=== PATIENT | female | born 1995 | race Two or more races ===

== ENCOUNTER 2023-03-03 04:09 | Inpatient (IN) | payer MEDICAID ==
[2023-03-02 09:40] LABS: Urine Bacteria FEW /hpf (None Seen); Urine Blood Negative /uL (Negative); Urine WBC 1 /hpf (0 - 5)
[2023-03-02 09:45] LABS: Basophils # (auto) 0.1 10 ^3/uL (0-0.2); Basophils % (auto) 0.7 % (0.0-2.0); Eosinophils # (auto) 0.1 10 ^3/uL (0-0.8); Eosinophils % (auto) 0.6 % (0.0-7.0); Hematocrit 37.7 % (36.0-46.0); Hemoglobin 12.5 g/dL (12.2-16.2); Lymphocytes # (auto) 2.1 10 ^3/uL (0.4-5.4); Lymphocytes % (auto) 24.8 % (10.0-50.0); Mean Corpuscular Hemoglobin 28.2 pg (28.0-32.0); Mean Corpuscular Hgb Conc. 33.2 g/dL (32.0-36.0); Mean Corpuscular Volume 84.8 fL (80.0-100.0); Monocytes # (auto) 0.7 10 ^3/uL (0-1.3); Neutrophils # (auto) 5.6 10 ^3/uL (1.6-8.6); Neutrophils % (auto) 65.9 % (37.0-80.0); Nucleated Red Blood Cells % 0.1 %; Red Blood Cells 4.44 10^6/uL (4.0-5.20); Red Cell Distribution Width 14.8 % (11.8-14.3); White Blood Cell 8.6 10^3/uL (4.4-10.8)
[2023-03-02 09:54] LABS: INR 0.89 (0.9-1.15); Partial Thromboplastin Time 25.9 SEC (24.5-34.5)
[2023-03-02 10:00] LABS: Albumin 2.7 g/dL (3.4-5.0); Alcohol, Urine < 3.0 mg/dL (0-10); Amphetamine Screen, Urine NEGATIVE (NEGATIVE); Barbiturate Scree,Urine NEGATIVE (NEGATIVE); Benzodiazephine Screen, Urine NEGATIVE (NEGATIVE); Calcium 8.7 mg/dL (8.5-10.1); Cannabinoid Screen, Urine NEGATIVE (NEGATIVE); Cocaine Screen, Urine NEGATIVE (NEGATIVE); Opiate Scree,Urine NEGATIVE (NEGATIVE); Phencyclidine Screen, Urine NEGATIVE (NEGATIVE)
[2023-03-02 10:03] LABS: BUN/Creatinine Ratio 12.5 (10.0-20.0); Bilirubin, Total 0.3 mg/dL (0.2-1.0); Total Protein 7.6 g/dL (6.4-8.2)
[~2023-03-03] VITALS: Ht 149.9 cm; Wt 79.8 kg
[2023-03-03] VITALS (20 sets, daily range): BP systolic 87–124; BP diastolic 43–75
[2023-03-03] MEDS ORDERED: SODIUM CITR/CITRIC ACID ORAL SOLN 30 ML PO ONE (04:30)
[2023-03-03] MEDS ORDERED: LACTATED RINGER'S 1,000 ML IV ONE (04:30)
[2023-03-03] MEDS ORDERED: METOCLOPRAMIDE HCL 5MG/ml INJ 2ml VIAL IV ONE (04:30)
[2023-03-03 07:07] LABS: RPR Non Reactive (Non Reactive)
[2023-03-03] MEDS ORDERED: ceFAZolin 1GM/50ML 50 ML IV ONE (07:30)
[2023-03-03] MEDS ORDERED: DOCU-94 PO (07:37)
[2023-03-03] MEDS ORDERED: HYDR-4902 PO (07:37)
[2023-03-03] MEDS ORDERED: MIDAZOLAM HCL 2MG/2ML 2ml VIAL (1mg/ml) ONE (07:42)
[2023-03-03] MEDS ORDERED: fentaNYL CITRATE 100 MCG/2 ML VL ONE (07:42)
[2023-03-03] MEDS ORDERED: MORPHINE SULF PF 5 MG/10 ML VIAL ONE (07:42)
[2023-03-03] MEDS ORDERED: LACT. RINGERS/OXYTOCIN 20UNITS 1,000 ML IV ONE (07:45)
[2023-03-03] MEDS ORDERED: GUM (CHEWING) 1 GUM CHEW CHEW ONE (07:45)
[2023-03-03] MEDS ORDERED: ceFAZolin 1GM/50ML 50 ML IV SCH (07:45)
[2023-03-03] MEDS ORDERED: ONDANSETRON HCL 4 MG/2 ML VIAL IV PRN ×3 (07:45→09:00)
[2023-03-03] MEDS ORDERED: oxyTOCIN 10 UNIT/ML 10ML VIAL ONE (08:00)
[2023-03-03] MEDS ORDERED: ePHEDrine SULFATE 50 MG/ML AMP IV PRN (09:00)
[2023-03-03] MEDS ORDERED: DexAMETHasone SOD PHOS 10MG/1ML VIAL INJ IV PRN (09:00)
[2023-03-03] MEDS ORDERED: NALOXONE HCL 0.4 MG/ML VIAL IV PRN (09:00)
[2023-03-03] MEDS ORDERED: LABETALOL HCL 5 MG/ML 4ML SYRINGE IV PRN (09:00)
[2023-03-03] MEDS ORDERED: diphenhdrAMINE HCL 50 MG/1 ML VL IV PRN (09:00)
[2023-03-03] MEDS ORDERED: MIDAZOLAM HCL 2MG/2ML 2ml VIAL (1mg/ml) IV PRN (09:00)
[2023-03-03] MEDS ORDERED: HYDROmorphone HCL 2 MG/ML VL/or syr IV PRN (09:00)
[2023-03-03] MEDS ORDERED: OXYTOCIN 10UNIT/ML 1ML VIAL ONE (09:04)
[2023-03-03] MEDS: ACETAMINOPHEN IV 1000 MG/100ML (10MG/ML) IV SCH ×2 (15:18→23:57)
[2023-03-03] MEDS: ceFAZolin 1GM/50ML 50 ML IV SCH ×2 (15:18→23:14)
[2023-03-03] MEDS: LACTATED RINGER'S 1,000 ML IV SCH (20:30)
[2023-03-03 22:01] LABS: Basophils # (auto) 0 10 ^3/uL (0-0.2); Basophils % (auto) 0.4 % (0.0-2.0); Eosinophils # (auto) 0 10 ^3/uL (0-0.8); Eosinophils % (auto) 0.2 % (0.0-7.0); Hematocrit 34.4 % (36.0-46.0); Hemoglobin 11.4 g/dL (12.2-16.2); Lymphocytes # (auto) 1.1 10 ^3/uL (0.4-5.4); Lymphocytes % (auto) 11.2 % (10.0-50.0); Mean Corpuscular Hgb Conc. 33.1 g/dL (32.0-36.0); Mean Corpuscular Volume 84.6 fL (80.0-100.0); Monocytes # (auto) 0.5 10 ^3/uL (0-1.3); Monocytes % (auto) 5.4 % (0.0-12.0); Neutrophils # (auto) 8.4 10 ^3/uL (1.6-8.6); Neutrophils % (auto) 82.8 % (37.0-80.0); Nucleated Red Blood Cells % 0.1 %; Red Blood Cells 4.07 10^6/uL (4.0-5.20); Red Cell Distribution Width 14.2 % (11.8-14.3); White Blood Cell 10.1 10^3/uL (4.4-10.8)
[2023-03-04] VITALS (13 sets, daily range): BP systolic 98–125; BP diastolic 48–81
[2023-03-04] MEDS: LACTATED RINGER'S 1,000 ML IV SCH (04:56)
[2023-03-04 06:48] LABS: Basophils # (auto) 0 10 ^3/uL (0-0.2); Basophils % (auto) 0.4 % (0.0-2.0); Eosinophils # (auto) 0 10 ^3/uL (0-0.8); Eosinophils % (auto) 0.3 % (0.0-7.0); Hematocrit 33.7 % (36.0-46.0); Hemoglobin 11.3 g/dL (12.2-16.2); Lymphocytes # (auto) 1.3 10 ^3/uL (0.4-5.4); Mean Corpuscular Hemoglobin 28.3 pg (28.0-32.0); Mean Corpuscular Hgb Conc. 33.4 g/dL (32.0-36.0); Mean Corpuscular Volume 84.8 fL (80.0-100.0); Monocytes # (auto) 0.5 10 ^3/uL (0-1.3); Monocytes % (auto) 5.3 % (0.0-12.0); Neutrophils # (auto) 6.9 10 ^3/uL (1.6-8.6); Nucleated Red Blood Cells % 0.1 %; Red Blood Cells 3.98 10^6/uL (4.0-5.20); Red Cell Distribution Width 14.7 % (11.8-14.3); White Blood Cell 8.7 10^3/uL (4.4-10.8)
[2023-03-04] MEDS: ceFAZolin 1GM/50ML 50 ML IV SCH (07:57)
[2023-03-04] MEDS: ACETAMINOPHEN IV 1000 MG/100ML (10MG/ML) IV SCH (07:58)
[2023-03-04] MEDS ORDERED: D5W/LACTATED RINGERS 1,000 ML IV SCH (10:00)
[2023-03-04] MEDS ORDERED: SODIUM CHLORIDE 0.9% 1,000 ML IV SCH (10:00)
[2023-03-04] MEDS ORDERED: BISACODYL 10 MG RECT SUPP PR PRN (10:00)
[2023-03-04] MEDS ORDERED: LACTATED RINGER'S 1,000 ML IV SCH (10:00)
[2023-03-04] MEDS ORDERED: HYDROcodone-ACET 5/325MG TAB PO PRN (10:00)
[2023-03-04] MEDS: DOCUSATE SOD 100 MG CAP PO SCH ×2 (10:33→23:05)
[2023-03-04] MEDS: DOCUSATE CALCIUM 240 MG CAP PO SCH (10:33)
[2023-03-04] MEDS: SIMETHICONE 80 MG CHEWABLE TABLET PO SCH ×3 (12:10→23:05)
[2023-03-04] MEDS: IBUPROFEN 800 MG TAB PO PRN ×2 (13:44→23:05)
[2023-03-04] MEDS: HYDROcodone-ACET 5/325MG TAB PO PRN (17:43)
[2023-03-05 03:14] VITALS: BP 94/61
[2023-03-05] MEDS: SIMETHICONE 80 MG CHEWABLE TABLET PO SCH ×4 (06:30→23:10)
[2023-03-05 06:50] VITALS: BP 111/66
[2023-03-05] MEDS: HYDROcodone-ACET 5/325MG TAB PO PRN (06:56)
[2023-03-05] MEDS ORDERED: PREN-96 PO ×3 (07:18→07:45)
[2023-03-05] MEDS ORDERED: IBUP-1455 PO ×3 (07:18→07:45)
[2023-03-05] MEDS: IBUPROFEN 800 MG TAB PO PRN ×2 (08:51→16:55)
[2023-03-05] MEDS: DOCUSATE CALCIUM 240 MG CAP PO SCH (09:51)
[2023-03-05] MEDS: DOCUSATE SOD 100 MG CAP PO SCH ×2 (09:51→23:10)
[2023-03-05 11:15] VITALS: BP 112/66
[2023-03-05 15:02] VITALS: BP 104/73
[2023-03-05 19:00] VITALS: BP 103/62
[2023-03-05 23:00] VITALS: BP 106/68
[2023-03-06 07:15] VITALS: BP 99/58
[2023-03-06 11:15] VITALS: BP 104/68
== END 2023-03-06 12:55 | disposition home or self-care (01) | DRG 540 ==
LOC: LDRP 04:09
PROVIDERS: ADMIT Obstetrics & Gynecology; ATTEND Obstetrics & Gynecology
PROC: 10D00Z1 Extraction of Products of Conception, Low, Open Approach (ICD-10-PCS; principal; 2023-03-03 07:32)
DX: O34.211 Maternal care for low transverse scar from previous cesarean delivery (principal); Z37.0 Single live birth; Z3A.38 38 weeks gestation of pregnancy
CPT/HCPCS: 36415; 59025; 80053; 80307; 81001; 81002; 85025; 85610; 85730; 86592; 86850; 86900; 86901; 94760; 94762; 96360; 96361; 96365; 96366; G0378; J0131; J0690; J2250; J2590

== ENCOUNTER 2025-05-15 10:09 | Emergency (ER) | payer SELFPAY, MEDICAID ==
[~2025-05-15 10:09] MED LIST: DOCU-94 PO; HYDR-4902 PO; IBUP-1455 PO; PREN-96 PO
[2025-05-15 10:10] VITALS: BP 110/67; PULSE 70; TEMP 97.9; O2SAT 96
--- NOTE | 2025-05-15 10:53 | ED.PDOC ---
[facility] HPI Comments A 29 YEAR OLD FEMALE PRESENTS TO THE ED WITH COMPLAINT OF VAGINAL SPOTTING DURING . PATIENT STATES SHE IS CURRENTLY ABOUT 11 WEEKS AND BEGAN TO EXPERIENCE VAGINAL SPOTTING TODAY, PROMPTING HER TO COME ED FOR EVALUATION. PATIENT DENIES DYSURIA, HEMATURIA, FLANK PAIN, VAGINAL DISCHARGE, FEVER, CHILLS, SHORTNESS OF BREATH, CHEST PAIN, ABDOMINAL PAIN, NAUSEA, VOMITING, HEADACHE, OR OTHER COMPLAINTS. NO OTHER SYMPTOMS OR MODIFYING FACTORS AT THIS TIME. PATIENT IS ALERT, ORIENTED X 4, AND HAS STEADY GAIT. Chief Complaint: Vaginal Bleed Time Seen by MD: 10:23 Reviewed Notes: Nurses Notes, Medications, Allergies Allergies: Coded Allergies: NO KNOWN ALLERGIES (Unverified , 03/03/23) Home Meds Active Scripts Vit W/ Ferrous Fumara ( One Daily) Daily Tab, 1 TAB PO DAILY, #90 TAB 3 Refills Prov:CATARINA BROWN [facility] 03/05/23 Ibuprofen Micronized (Ibuprofen) 800 Mg Tab, 800 MG PO Q8HP PRN for 30 Days, #90 TAB Prov:CATARINA BROWN [facility] 03/05/23 Hydrocodone-Acetaminophen (Hydrocodone Bitartrate/AC 5-325 mg) 1 Tab Tab, 1 TAB PO Q6HPRN PRN for 5 Days, #20 TAB Prov:JULIO HERMAN 03/03/23 Docusate Sodium (Colace) 100 Mg Cap, 1 CAP PO BID, #60 CAP 2 Refills Prov:JULIO HERMAN 03/03/23 Information Source: Patient Mode of Arrival: Ambulatory Timing: Days Prehospital treatment: None Severity: Mild Vaginal Lesions: None Bleeding Quality: Bright Red Vaginal Mass: None Onset Of Mass/Bleeding: Spontaneous Sexual Activity: Last Consensual [place]: Unknown Control: None History of: Current Blood Type: Unknown Symptoms of Possible : None Associated Signs and Symptoms: Vaginal Bleeding, Cramping Past Medical History PAST MEDICAL HISTORY: Denies Surgical History: Denies all surgeries JOB ESTIMATOR History: No Pertinent JOB ESTIMATOR History Family History Family History: Reviewed,noncontributory to illness Social History Smoker: Non-Smoker Alcohol: Denies ETOH Use Drugs: Denies Drug Use Lives In: Home Constitutional: denies: chills, diaphoresis, fatigue, fever, malaise, sweats, weakness, others EENTM: denies: blurred vision, double vision, ear bleeding, ear discharge, ear drainage, ear pain, ear ringing, eye pain, eye redness, hearing loss, mouth pain, mouth swelling, nasal discharge, nose bleeding, nose congestion, nose pain, photophobia, tearing, throat pain, throat swelling, voice changes, others Respiratory: denies: cough, hemoptysis, orthopnea, SOB at rest, shortness of breath, SOB with excertion, stridor, wheezing, others Cardiovascular: denies: chest pain, dizzy spells, diaphoresis, Dyspnea on exertion, edema, irregular heart beat, left arm pain, lightheadedness, palpitations, PND, syncope, others Gastrointestinal: denies: abdomen distended, abdominal pain, blood streaked bowels, constipated, diarrhea, dysphagia, difficulty swallowing, hematemesis, melena, nausea, poor appetite, poor fluid intake, rectal bleeding, rectal pain, vomiting, others Genitourinary: reports: abnormal vagina bleeding (VAGINAL SPOTTING), ; denies: burning, dyspareunia, dysuria, flank pain, frequency, hematuria, incontinence, pain, vagina discharge, urgency, others Neurological: denies: dizziness, fainting, headache, left sided numbness, left sided weakness, numbness, paresthesia, pre-existing deficit, right sided numbness, right sided weakness, seizure, speech problems, tingling, tremors, weakness, others Musculoskeletal: denies: back pain, gout, joint pain, joint swelling, muscle pain, muscle stiffness, neck pain, others Integumetry: denies: bruises, change in color, change in hair/nails, dryness, laceration, lesions, lumps, rash, wounds, others Allergic/Immunocompromised: denies: Difficulty Healing, Frequent Infections, Hives, Itching, others Hematologic/Lymphatic: denies: anemia, blood clots, easy bleeding, easy bruising, swollen glands, others Endocrine: denies: excessive hunger, excessive sweating, excessive thirst, excessive urination, flushing, intolerance to cold, intolerance to heat, unexplained weight gain, unexplained weight loss, others Psychiatric: denies: anxiety, bipolar disorder, depression, hopeless, panic dis order, schizophrenia, sleepless, suicidal, others All Other Systems: Reviewed and Negative Physical Exam General Appearance: No Apparent Distress, Normal HEENT: Normal ENT Inspection, PERRL/EOMI, Pharynx Normal, TMs Normal Neck: Full Range of Motion, Non-Tender, Normal, Normal Inspection Respiratory: Chest Non-Tender, Lungs Clear, No Accessory Muscle Use, No Respiratory Distress, Normal Breath Sounds Cardiovascular: No Edema, No JVD, No Murmur, No Gallop, Normal Peripheral Pulses, Regular Rate/Rhythm Breast Exam: Deferred Gastrointestinal: No Organomegaly, Non Tender, No Pulsatile Mass, Normal Bowel Sounds, Soft Genitalia: Deferred Pelvic: Normal External Exam, Other (VAGINAL SPOTTING, NO VAGINAL BLEEDING AND BLOOD CLOTS. ) Rectal: Deferred Extremities: No calf tenderness, Normal capillary refill, Normal inspection, Normal range of motion, Non-tender, No pedal edema Musculoskeletal : Apperance: Normal Neurologic: Alert, site planner II-XII nml as Tested, No Motor Deficits, Normal Affect, Normal Mood, No Sensory Deficits Cerebellar Function: Normal Reflexes: Normal Skin: Dry, Normal Color, Warm Peripheral Pulses: 2+ carotid (R), 2+ carotid (L) Lymphatic: No Adenopathy Was a procedure done? Was a procedure done?: No Differential Diagnosis (JOB ESTIMATOR) Vaginal Bleeding: - Incomplete, - Threatened, Ectopic , Menstrual Bleeding, UTI, Vaginitis Mass / Lesion: N/A Vaginal Discharge: N/A X-Ray, Labs, Meds, VS Vital Signs Date Time Temp Pulse Resp B/P (MAP) Pulse Ox O2 Delivery O2 Flow Rate FiO2 05/15/25 10:10 97.9 70 110/67 96 97.9 Lab Test 05/15/25 11:53 05/15/25 10:49 Range/Units White Blood Count 8.0 4.4-10.8 10^3/uL Red Blood Count 4.79 4.0-5.20 10^6/uL Hemoglobin 13.5 12.2-16.2 g/dL Hematocrit 40.4 36.0-46.0 % Mean Corpuscular Volume 84.5 80.0-100.0 fL Mean Corpuscular Hemoglobin 28.1 28.0-32.0 pg Mean Corpuscular Hemoglobin Concent 33.3 32.0-36.0 g/dL Red Cell Distribution Width 13.9 11.8-14.3 % Platelet Count 372 140-450 10^3/uL Mean Platelet Volume 7.4 6.9-10.8 fL Neutrophils (%) (Auto) 60.0 37.0-80.0 % Lymphocytes (%) (Auto) 26.6 10.0-50.0 % Monocytes (%) (Auto) 6.1 0.0-12.0 % Eosinophils (%) (Auto) 6.2 0.0-7.0 % Basophils (%) (Auto) 1.1 0.0-2.0 % Neutrophils # (Auto) 4.8 1.6-8.6 10 ^3/uL Lymphocytes # (Auto) 2.1 0.4-5.4 10 ^3/uL Monocytes # (Auto) 0.5 0-1.3 10 ^3/uL Eosinophils # (Auto) 0.5 0-0.8 10 ^3/uL Basophils # (Auto) 0.1 0-0.2 10 ^3/uL Nucleated Red Blood Cells 0.1 % Beta HCG, Quantitative 4785.7 H 1.5-4.2 mIU/mL Urine Color Yellow Yellow Urine Clarity Clear Clear Urine pH 6.0 5.0-9.0 Urine Specific [place] 1.025 1.001-1.035 Urine Protein Negative Negative Urine Ketones Negative Negative Urine Blood Negative Negative /uL Urine Nitrite Negative Negative Urine Bilirubin Negative Negative Urine Urobilinogen Normal Negative mg/dL Urine Leukocyte Esterase Negative Negative /uL Urine RBC 2 0 - 4 /hpf Urine Microscopic WBC 1 0-5 /HPF Urine Squamous Epithelial Cells Few <5 /hpf Urine Bacteria None seen None Seen /hpf Urine Mucus Few None Seen Urine Glucose Normal Normal mg/dL OB ULTRASOUND <14 WEEKS: HISTORY: VAGINAL SPOTTING, 10 WEEKS TECHNIQUE: Multiple real-time grayscale sonographic images of the pelvis with duplex Doppler color flow, spectral and M-mode analysis. TRANSDUCERS: Transabdominal and transvaginal FINDINGS: The uterus measures 8.2 x 6.3 x 5.2 cm. The cervix not well visualized. Right ovary measures 2.9 x 2.0 x 2.9 cm with normal Doppler color flow. There is a corpus luteal cysts in the right ovary measuring 2.2 cm. Left ovary is not well visualized due to obscuration from bowel gas IUP single gestational sac at 7 weeks 6 days average ultrasound age based on gestational sac size of 3.0 cm No heart rate is detected at this time. There is suggestion of the subchorionic hematoma measuring 1.5 cm. IMPRESSION: IUP single gestational sac 7 weeks 6 AUA corresponding to an DAMIEN of 12/27/2019. No heart rate is detected at this time. Correlate with beta HCG and short-term follow-up pelvic ultrasound. There is suggestion of the subchorionic hematoma measuring 1.5 cm. ATED BY: JACQUELINE SCHAEFER MD DICTATED DATE/TIME: 05/15/25 115 SIGNED BY: JACQUELINE SCHAEFER MD SIGNED DATE/TIME: 05/15/25 115 CC: X-Ray, Labs, Meds, VS Comment EXTERNAL MEDICAL RECORDS REVIEWED: [NONE] INDEPENDENT HISTORIANS: [NONE] SOCIAL DETERMINANTS OF HEALTH: [NONE] LABS ORDERED: CBC, UA, BETA HCG QUANT, ABO TYPE REVIEWED AND INTERPRETED RESULTS: BETA HCG QUANT 4,785.7 IMAGING ORDERED: US OB < 14 WKS TREATMENTS ORDERED: NONE PROCEDURES PERFORMED: NONE CRITICAL CARE TIME: NONE I HAVE DISCUSSED THE PATIENT WITH THE ATTENDING PHYSICIAN DR. DURAN AND HE AGREES WITH THE PATIENT'S PLAN OF CARE AND DISPOSITION. BASED ON HISTORY OF PRESENT ILLNESS, AND PHYSICAL EXAM, PATIENT WILL BE DISCHARGED HOME. SHARED DECISION MAKING: PATIENT INSTRUCTED TO FOLLOW UP WITH PRIMARY CARE PROVIDER IN 1-2 DAYS FOR RE-EVALUATION OF SYMPTOMS. PATIENT VERBALIZES UNDERSTANDING TO RETURN TO ED FOR NEW OR WORSENING SYMPTOMS OR IF FOLLOW UP WITH PCP CANNOT BE OBTAINED. PATIENT FEELS COMFORTABLE GOING HOME AT THIS TIME. ALL QUESTIONS ADDRESSED AT TIME OF DISCHARGE. Images Reviewed?: Images reviewed and evaluated by me Time of 1ST Reevaluation: 13:04 Reevaluation 1ST: Improved Patient Education/Counseling: Diagnosis, Treatment, Need For Follow Up Family Education/Counseling: Diagnosis, Treatment, Need For Follow Up Medical Screening: No EMC Exist At This Time Departure 1 Departure Time of Disposition: 13:05 Impression: Primary Impression: Vaginal spotting Additional Impression: Threatened in first trimester Disposition: 01 HOME / SELF CARE / HOMELESS Condition: Stable Additional Instructions: FOLLOW-UP WITH [facility]ENER IN 1 TO 2 DAYS. TAKE MEDICATIONS PRESCRIBED. RETURN TO ED FOR ANY NEW OR WORSENING SYMPTOMS. Discharged With: Self, Spouse Critical Care Note Critical Care Time?: No Stability Stability form required: No I personally scribed for JONO RODRIGUEZ ([email or web address]) on 05/15/25 at 10:53. Electronically submitted by Fabio Morrell ([email or web address]). I personally scribed for JONO RODRIGUEZ ([email or web address]) on 05/15/25 at 12:00. Electronically submitted by Fabio Morrell ([email or web address]). I personally scribed for JONO RODRIGUEZ ([email or web address]) on 05/15/25 at 12:58. Electronically submitted by Fabio Morrell ([email or web address]). JONO RODRIGUEZ May 15, 2025 10:53
[2025-05-15 11:26] LABS: Urine Protein, UAD Negative (Negative)
--- NOTE | 2025-05-15 11:54 | DVH ---
OB ULTRASOUND <14 WEEKS: HISTORY: VAGINAL SPOTTING, 10 WEEKS TECHNIQUE: Multiple real-time grayscale sonographic images of the pelvis with duplex Doppler color f low, spectral and M-mode analysis. TRANSDUCERS: Transabdominal and transvaginal FINDINGS: The uterus measures 8.2 x 6.3 x 5.2 cm. The cervix not well visualized. Right ovary measures 2.9 x 2.0 x 2.9 cm with normal Doppler color flow. There is a corpus luteal cys ts in the right ovary measuring 2.2 cm. Left ovary is not well visualized due to obscuration from bowel gas IUP single gestational sac at 7 weeks 6 days average ultrasound age based on gestational sac size of 3.0 cm No heart rate is detected at this time. There is suggestion of the subchorionic hematoma measur ing 1.5 cm. IMPRESSION: IUP single gestational sac 7 weeks 6 AUA corresponding to an DAMIEN of 12/27/2019. No heart rate is detected at this time. Correlate with beta HCG and short-term follow-up pelvi c ultrasound. There is suggestion of the subchorionic hematoma measuring 1.5 cm.
[2025-05-15 12:21] LABS: Hematocrit 40.4 % (36.0-46.0); Hemoglobin 13.5 g/dL (12.2-16.2); Mean Corpuscular Hemoglobin 28.1 pg (28.0-32.0); Mean Corpuscular Volume 84.5 fL (80.0-100.0); Nucleated Red Blood Cells % 0.1 %
== END 2025-05-15 12:51 | disposition home or self-care (01) ==
LOC: ER 10:09
DX: O20.0 Threatened abortion (principal); Z3A.11 11 weeks gestation of pregnancy
CPT/HCPCS: 36415; 76801; 76817; 81001; 84702; 85025

== ENCOUNTER 2025-05-20 15:34 | Emergency (ER) | payer SELFPAY, MEDICAID ==
[~2025-05-20] VITALS: Ht 154.9 cm; Wt 84.2 kg
--- NOTE | 2025-05-20 15:59 | ED.PDOC ---
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 Patient states she is about 7 weeks , P:2 A:1, has appointment with OBGYN tomorrow. She began experiencing suprapubic pain, went to the restroom, noticed heavy bleeding with blood clots, has had several episodes. Denies fever, chills, dysuria, vaginal discharge, nausea, vomiting, diarrhea, dizziness, headache, blurred vision. No other symptoms or modifying factors present at this time. Initial Vitals BP: 129/81 HR: 107 RR: 18 O2: 98% Temp: 97.5 F Past Medical History: P:2 A:1 Past Surgical History: Denies Social History: Denies ETOH, smoking, and drug use. Medications: Denies Allergies: NKDA HPI: Poor Historian. REVIEW OF SYSTEMS: CONSTITUTIONAL: Denies acute: fever, diaphoresis, chills, generalized weakness. HEAD: Denies acute: headache, photophobia Eyes: Denies acute: Double vision, vision loss, eye pain, eye discharge. EARS: Denies acute: tinnitus, hearing loss, ear discharge, ear pain, THROAT: Denies acute: sore throat, swelling, difficulty swallowing , pain with swallowing, change in voice. NECK: Denies acute: neck pain, neck swelling, stiff neck. HEART: Denies acute : chest pain, palpitations, LUNGS: Denies acute: SOB, wheezing, cough, hemoptysis ABDOMEN: Denies acute: Nausea, Vomiting, diarrhea, melena , hematemesis, hematochezia SKIN: Denies acute: rash, redness, lesions, itchiness. EXTREMITIES: Denies acute: calf pain, numbness, tingling, weakness, denies pain in extremity. Denies acute: Low back pain. Neuro: Denies acute: focal neurological deficit, motor or sensory focal neurological deficit, tremors, seizure like activity, confusion, dizziness, change in mental status, loss of bowel or bladder function, cauda equina like symptoms. : Denies acute: dysuria, hematuria, flank pain, increase in urinary frequency. PSYCH: Denies acute: hallucination, suicidal ideation, homicidal ideation. FEMALE: Denies acute: foul odor, unusual discharge. PHYSICAL EXAM: General: ---[id number]-----acute distress, awake and alert. Head: normocephalic, atraumatic. Neck: supple, trachea is midline, no swelling. Throat: Normal phonation. Eyes:, no erythema, no purulent discharge, no proptosis, no icterus. Heart: regular rate, regular rhythm, no significant murmur appreciated. Lungs: no apparent respiratory distress, Able to speak in full sentences. No wheezing, no rhonchi, no crackles. No stridors Clear to auscultation bilaterally. Abdomen: Suprapubic tender to palpation, non distended, soft, no guarding, no rebound, + bowel sounds. Neuro: Awake, Alert, oriented to name, self, situation, follows commands GCS=15. Speech is normal. Skin: no petechia, no purpura, no cyanosis, non-pale, not jaundice. Lower extremities: --no - Pitting edema no deformity, no focal swelling, no calf TTP. Makes eye contact. moves all four extremities. Face: no apparent facial droop. Ambulating in the ED independently. ED COURSE: DISCLAIMER: This medical document was created using an electronic medical record system with voice recognition software and computerized dictation system. Although this document has been carefully reviewed, there might still be some phonetic and typographical errors. Occasional wrong-word or "sound-alike" substitutions may have occurred due to the inherent limitations of voice recognition software. These areas are purely typographical due to imperfections of the software programs and do not reflect any compromise in the patient's medical care. Please read the chart carefully and recognize, using context, where these substitutions have occurred. Chief Complaint: Vaginal Bleed Time Seen by MD: 15:45 Reviewed Notes: Medications, Allergies Allergies: Coded Allergies: NO KNOWN ALLERGIES (Unverified , 03/03/23) Home Meds Active Scripts Vit W/ Ferrous Fumara ( One Daily) Daily Tab, 1 TAB PO DAILY, #90 TAB 3 Refills Prov:ISABELLARADHACATARINA BOLANOS CNM 03/05/23 Ibuprofen Micronized (Ibuprofen) 800 Mg Tab, 800 MG PO Q8HP PRN for 30 Days, #90 TAB Prov:CATARINA BROWN CN 03/05/23 Hydrocodone-Acetaminophen (Hydrocodone Bitartrate/AC 5-325 mg) 1 Tab Tab, 1 TAB PO Q6HPRN PRN for 5 Days, #20 TAB Prov:JULIO HERMAN DO 03/03/23 Docusate Sodium (Colace) 100 Mg Cap, 1 CAP PO BID, #60 CAP 2 Refills Prov:JULIO HERMAN DO 03/03/23 Information Source: Patient Mode of Arrival: Ambulatory Timing: Hours Prehospital treatment: None Severity: Moderate Vaginal Discharge: None Vaginal Lesions: None Bleeding Quality: Bright Red Vaginal Mass: None Onset Of Mass/Bleeding: Spontaneous Sexual Activity: Last Consensual Glenn: Unknown Control: None History of: Current Symptoms of Possible : Missed Period Associated Signs and Symptoms: Vaginal Bleeding, Cramping Past Medical History PAST MEDICAL HISTORY: Denies 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 Was a procedure done?: No X-Ray, Labs, Meds, VS Vital Signs Date Time Temp Pulse Resp B/P (MAP) Pulse Ox O2 Delivery O2 Flow Rate FiO2 05/20/25 15:37 97.5 107 18 129/81 98 97.5 Lab Test 05/20/25 16:20 05/20/25 15:59 Range/Units White Blood Count 9.8 4.4-10.8 10^3/uL Red Blood Count 4.50 4.0-5.20 10^6/uL Hemoglobin 12.6 12.2-16.2 g/dL Hematocrit 37.7 36.0-46.0 % Mean Corpuscular Volume 83.7 80.0-100.0 fL Mean Corpuscular Hemoglobin 28.0 28.0-32.0 pg Mean Corpuscular Hemoglobin Concent 33.5 32.0-36.0 g/dL Red Cell Distribution Width 13.9 11.8-14.3 % Platelet Count 354 140-450 10^3/uL Mean Platelet Volume 7.6 6.9-10.8 fL Neutrophils (%) (Auto) 75.1 37.0-80.0 % Lymphocytes (%) (Auto) 14.8 10.0-50.0 % Monocytes (%) (Auto) 4.8 0.0-12.0 % Eosinophils (%) (Auto) 4.7 0.0-7.0 % Basophils (%) (Auto) 0.6 0.0-2.0 % Neutrophils # (Auto) 7.4 1.6-8.6 10 ^3/uL Lymphocytes # (Auto) 1.5 0.4-5.4 10 ^3/uL Monocytes # (Auto) 0.5 0-1.3 10 ^3/uL Eosinophils # (Auto) 0.5 0-0.8 10 ^3/uL Basophils # (Auto) 0.1 0-0.2 10 ^3/uL Nucleated Red Blood Cells 0.0 % Sodium Level 137 136-145 mmol/L Potassium Level 3.5 3.5-5.1 mmol/L Chloride Level 105 98-107 mmol/L Carbon Dioxide Level 20 20-31 mmol/L Anion Gap 12 5-15 Blood Urea Nitrogen 10 9-23 mg/dL Creatinine 0.65 0.550-1.02 mg/dL Glomerular Filtration Rate Calc 122 >90 mL/min BUN/Creatinine Ratio 15.4 10.0-20.0 Serum Glucose 114 H 74-106 mg/dL Calcium Level 9.7 8.7-10.4 mg/dL Total Bilirubin 0.3 0.2-1.0 mg/dL Aspartate Amino Transferase (AST) 21 13-40 U/L Alanine Aminotransferase (ALT) 11 7-40 U/L Alkaline Phosphatase 80 46-116 U/L Total Protein 7.9 5.7-8.2 g/dL Albumin 4.6 3.2-4.8 g/dL Beta HCG, Quantitative 1631.4 H 1.5-4.2 mIU/mL Urine Color Light-red Yellow Urine Clarity Ex.turbid Clear Urine pH 6.0 5.0-9.0 Urine Specific Mullins 1.009 1.001-1.035 Urine Protein 1+ H Negative Urine Ketones Negative Negative Urine Blood 3+ H Negative /uL Urine Nitrite Negative Negative Urine Bilirubin Negative Negative Urine Urobilinogen Normal Negative mg/dL Urine Leukocyte Esterase 1+ Negative /uL Urine RBC 4835 0 - 4 /hpf Urine WBC Clumps Present None Seen /hpf Urine Microscopic WBC 596 H 0-5 /HPF Urine Squamous Epithelial Cells None seen <5 /hpf Urine Bacteria None seen None Seen /hpf Urine Glucose Normal Normal mg/dL Current Medications Medications (Trade) Dose Ordered Sig/Mendy Route Start Time Stop Time Status Last Admin Sodium Chloride 1,000 ml @ 1,000 mls/hr Q1H ONCE IV 05/20/25 16:00 05/20/25 16:59 DC 05/20/25 16:00 [place] [address] Ph: [phone] DIAGNOSTIC IMAGING Diagnostic Imaging Report : [id number] Signed PATIENT: EMMA HORVATHCT: [id number] UNIT: [id number] : 1995 LOC: ER ROOM / BED: / AGE / SEX: 29 / F ADM STATUS: REG ER SERVICE 1559 ORDERING PHYSICIAN: ANA BOUDREAUX DO PROCEDURE(s): OB4US - OB ULTRASOUND COMP LESS 14WKS REASON: vag bleed ORDER NUMBER(s): [id number], ACCESSION NUMBER(s): [id number] INDICATION: vag bleed TECHNIQUE: Multiple real-time grayscale transabdominal sonographic images along with color and duplex Doppler of the uterus and ovaries were obtained. COMPARISON: US OB ULTRASOUND COMP LESS 14WKS on DOS: 05/15/25, US OB TRANS VAGINAL US on DOS: 05/15/25 FINDINGS: The uterus measures 9.3 x 5.7 x 4.9 cm. The endometrial stripe measures 0.53 cm. Possible cystic area in the lower uterine segment. No pole or yolk sac. Beta hCG 1631 trending downward. The right ovary not visualized The left ovary not visualized Subsequent color and duplex Doppler interrogation of the ovaries demonstrated symmetric vascular flow to both ovaries, though this does not exclude the possibility of torsion due to the dual blood supply. IMPRESSION: 1. No intrauterine . 2. Beta hCG 1631 trending downward. 3. Possible cystic area in the lower uterine segment. ATED BY: LUIS MIGUEL GRAY Jr. DO DICTATED DATE/TIME: 05/20/251815 SIGNED BY: LUIS MIGUEL GRAY Jr., DO SIGNED DATE/TIME: 05/20/251815 CC: Time of 1ST Reevaluation: 16:15 Reevaluation 1ST: Unchanged Time of 2ND Reevaluation: 19:11 (Urinalysis still pending) Patient Education/Counseling: Diagnosis, Treatment Family Education/Counseling: No Family Present Departure 1 Departure Time of Disposition: 20:03 Impression: Primary Impression: Vaginal bleeding during Additional Impressions: Miscarriage at 8 to 28 weeks gestation UTI in Disposition: 01 HOME / SELF CARE / HOMELESS Condition: Stable Additional Instructions: Additional instructions: Please read all instructions provided in this packet carefully. You MUST follow-up with your primary care/family doctor in 1 to 2 days. If you are unable to see your primary care/family doctor, please return to our emergency room for re-assessment and re-evaluation in 1 to 2 days. Return to the emergency room here in our facility or to the nearest ER [facility] if your symptoms change or worsen. CONSULTATIONS: you MUST Follow-up for consultation as soon as possible with: --[facility] tomorrow as scheduled. You MUST call the consultants office yourself to make an appointment. You may need to arrange that through your insurance and/or your primary/family doctor. If you are unable to see the [employer] consultant in 1 to 2 days, you must return to our emergency room (or any other ER of your choice) for re-assessment and re- evaluation. Adequate fluid hydration. Although you have been discharged from the Emergency Department, this does not mean that you have a "clean bill of health". No definitive diagnosis for your symptoms has been made today. It is possible that you are in the process of developing a serious illness. This is why you must return to the ED without fail if any new or worsening symptoms develop. Repeat beta-hCG levels in 48-72 hours. Repeat pelvic ultrasound in 4-5 days. Absolute pelvic rest. Below is a copy of your radiological report for follow up: [address] [address] Ph: [phone] DIAGNOSTIC IMAGING Diagnostic Imaging Report : [id number] Signed PATIENT: BLANCO HORVATH ACCT: [id number] UNIT: [id number] : 1995 LOC: ER ROOM / BED: / AGE / SEX: 29 / F ADM STATUS: REG ER SERVICE 1559 ORDERING PHYSICIAN: ANA BOUDREAUX DO PROCEDURE(s): OB4US - OB ULTRASOUND COMP LESS 14WKS REASON: vag bleed ORDER NUMBER(s): [id number], ACCESSION NUMBER(s): [id number] INDICATION: vag bleed TECHNIQUE: Multiple real-time grayscale transabdominal sonographic images along with color and duplex Doppler of the uterus and ovaries were obtained. COMPARISON: US OB ULTRASOUND COMP LESS 14WKS on DOS: 05/15/25, US OB TRANS VAGINAL US on DOS: 05/15/25 FINDINGS: The uterus measures 9.3 x 5.7 x 4.9 cm. The endometrial stripe measures 0.53 cm. Possible cystic area in the lower uterine segment. No pole or yolk sac. Beta hCG 1631 trending downward. The right ovary not visualized The left ovary not visualized Subsequent color and duplex Doppler interrogation of the ovaries demonstrated symmetric vascular flow to both ovaries, though this does not exclude the possibility of torsion due to the dual blood supply. IMPRESSION: 1. No intrauterine . 2. Beta hCG 1631 trending downward. 3. Possible cystic area in the lower uterine segment. ATED BY: LUIS MIGUEL GRAY Jr., DO DICTATED DATE/TIME: 05/20/251815 SIGNED BY: LUIS MIGUEL GRAY Jr., SIGNED DATE/TIME: 05/20/251815 CC: e-Prescriptions Cephalexin Monohydrate (Cephalexin) 500 Mg Tab 1 TAB PO TID for 5 Days, #15 TAB Prov: ANA BOUDREAUX DO 05/20/25 Discharged With: Self Critical Care Note Critical Care Time?: No I personally scribed for ANA BOUDREAUX DO ([email or web address]) on 05/20/25 at 15:59. Electronically submitted by Tere Watkins ([email or web address]). ANA BOUDREAUX DO May 20, 2025 15:59
[2025-05-20] MEDS: SODIUM CHLORIDE 0.9% 1,000 ML IV ONE (16:00)
[2025-05-20 16:54] LABS: Hematocrit 37.7 % (36.0-46.0); Hemoglobin 12.6 g/dL (12.2-16.2); Mean Corpuscular Hemoglobin 28.0 pg (28.0-32.0); Mean Corpuscular Volume 83.7 fL (80.0-100.0); Nucleated Red Blood Cells % 0.0 %
[2025-05-20 17:09] LABS: Alanine Aminotransferase 11 U/L (7-40); Albumin 4.6 g/dL (3.2-4.8); Alkaline Phosphatase 80 U/L (46-116); Anion Gap 12 (5-15); BUN/Creatinine Ratio 15.4 (10.0-20.0); Blood Urea Nitrogen 10 mg/dL (9-23); Calcium 9.7 mg/dL (8.7-10.4); Carbon Dioxide 20 mmol/L (20-31); Chloride 105 mmol/L (98-107); Potassium 3.5 mmol/L (3.5-5.1); Sodium 137 mmol/L (136-145); Total Protein 7.9 g/dL (5.7-8.2)
[2025-05-20 17:17] LABS: Bilirubin, Total 0.3 mg/dL (0.2-1.0); Glucose 114 mg/dL (74-106)
--- NOTE | 2025-05-20 18:19 | DVH ---
INDICATION: vag bleed TECHNIQUE: Multiple real-time grayscale transabdominal sonographic images along with color and duplex Doppler of the uterus and ovaries were obtained. COMPARISON: US OB ULTRASOUND COMP LESS 14WKS on DOS: 05/15/25, US OB TRANS VAGINAL US on DOS: 05/15/25 FINDINGS: The uterus measures 9.3 x 5.7 x 4.9 cm. The endometrial stripe measures 0.53 cm. Possible c ystic area in the lower uterine segment. No pole or yolk sac. Beta hCG 1631 trending downward. The right ovary not visualized The left ovary not visualized Subsequent color and duplex Doppler interrogation of the ovaries demonstrated symmetric vascular flow to both ovaries, though this does not exclude the possibility of torsion due to the dual blood suppl y. IMPRESSION: 1. No intrauterine . 2. Beta hCG 1631 trending downward. 3. Possible cystic area in the lower uterine segment.
[2025-05-20 19:27] LABS: Urine Protein, UAD 1+ (Negative); Urine WBC Clumps PRESENT /hpf (None Seen)
[2025-05-20] MEDS ORDERED: CEPH500T PO (20:03)
[2025-05-20 21:14] VITALS: BP 107/67; PULSE 70; RESP 16; TEMP 98.2; O2SAT 98
== END 2025-05-20 21:21 | disposition home or self-care (01) ==
LOC: ER 15:34
DX: O20.9 Hemorrhage in early pregnancy, unspecified (principal); O23.43 Unspecified infection of urinary tract in pregnancy, third trimester; N39.0 Urinary tract infection, site not specified; R10.2 Pelvic and perineal pain; Z3A.28 28 weeks gestation of pregnancy
CPT/HCPCS: 36415; 76801; 80053; 81001; 84702; 85025; 86850; 86900; 86901; 96360; 99284; J7030